=== PATIENT | male | born 1950 ===

== ENCOUNTER 2017-02-28 16:59 | Emergency (ER) | payer OTHER ==
[2017-02-28 17:18] VITALS: BP 177/74; PULSE 90; RESP 16; TEMP 99.2; O2SAT 99
--- NOTE | 2017-02-28 17:19 | ED PDOC ---
HPI: Abdomen Time Seen by Provider: 02/28/17 17:18 Chief Complaint (Nursing): Abdominal Pain Chief Complaint (Provider): abdominal pain History Per: Patient Additional Complaint(s): 66-year-old male with history of high blood pressure presents to emergency Department with right-sided back pain that radiates to right lower quadrant that started last night associated with urinary frequency. Patient denies fever or chills, no nausea or vomiting, no diarrhea or constipation. Patient denies history of renal colic. No meds taken for pain relief at home. Past Medical History Reviewed: Historical Data, Nursing Documentation, Vital Signs Vital Signs: Last Vital Signs Temp 99.2 F 02/28/17 17:15 Pulse 90 02/28/17 17:15 Resp 16 02/28/17 17:15 BP 177/74 H 02/28/17 17:15 Pulse Ox 99 02/28/17 19:13 - Medical History PMH: Back Problems, HTN - Surgical History Surgical History: Back Surgery - Family History Family History: States: No Known Family Hx - Living Arrangements Living Arrangements: With Family - Social History Current smoker - smoking cessation education provided: No Alcohol: None Drugs: Denies - Allergies Allergies/Adverse Reactions: Allergies Allergy/AdvReac Type Severity Reaction Status Date / Time No Known Allergies Allergy Verified 02/28/17 17:15 Review of Systems ROS Statement: Except As Marked, All Systems Reviewed And Found Negative Constitutional: Negative for: Fever, Chills Cardiovascular: Negative for: Chest Pain Respiratory: Negative for: Cough Gastrointestinal: Positive for: Abdominal Pain (RLQ). Negative for: Nausea, Vomiting, Diarrhea, Constipation Genitourinary Male: Positive for: Frequency. Negative for: Dysuria, Incontinence, Hematuria, Scrotal Pain, Penile Pain Musculoskeletal: Positive for: Back Pain (right) Physical Exam - Reviewed Nursing Documentation Reviewed: Yes Vital Signs Reviewed: Yes - Physical Exam Appears: Positive for: Well, Non-toxic, No Acute Distress Skin: Negative for: Rash Eye Exam: Positive for: Normal appearance Cardiovascular/Chest: Positive for: Regular Rate, Rhythm Respiratory: Positive for: Normal Breath Sounds Gastrointestinal/Abdominal: Positive for: Soft, Tenderness (RLQ). Negative for : Distended, Guarding, Rebound Back: Positive for: R CVA Tenderness. Negative for: L CVA Tenderness, Vertebral Tenderness Extremity: Negative for: Pedal Edema Neurologic/Psych: Positive for: Alert, Oriented - Laboratory Results Result Diagrams: 02/28/17 18:29 02/28/17 18:29 Urine dip results: Negative for: Leukocyte Esterase, Blood, Nitrate, Ketones, Glucose, Bilirubin, Protein - ECG O2 Sat by Pulse Oximetry: 99 Pulse Ox Interpretation: Normal Medical Decision Making Medical Decision Makin66 year old male with back pain, abd pain and urinary frequency Plan: Urine dip - negative CBC CMP IVF CT abd and pelvis with IV contrast Disposition - Clinical Impression Clinical Impression: Abdominal pain - Patient ED Disposition Is Patient to be Admitted: Transfer of Care - Disposition Disposition: Transfer of Care Disposition Time: 20:02 Condition: STABLE Forms: [employer] (Divehi) Patient Signed Over To: Fernando Hess Handoff Comments: pending CT results and final disposition Results - Lab Results Lab Results: 02/28/17 02/28/17 18:29 18:29 WBC 6.8 RBC 4.59 Hgb 15.6 Hct 45.6 MCV 99.3 H MCH 33.9 H MCHC 34.1 RDW 13.2 Plt Count 133 MPV 8.9 Neut % (Auto) 63.0 Lymph % (Auto) 27.9 [place] % (Auto) 7.1 Eos % (Auto) 1.8 Baso % (Auto) 0.2 Neut # 4.3 Lymph # 1.9 [place] # 0.5 Eos # 0.1 Baso # 0.0 Sodium 140 Potassium 3.5 L Chloride 102 Carbon Dioxide 28 Anion Gap 14 BUN 19 Creatinine 0.9 Est GFR ( Amer) > 60 Est GFR (Non-Af Amer) > 60 Random Glucose 96 Calcium 9.2 Total Bilirubin 0.9 AST 23 ALT 37 Alkaline Phosphatase 60 Total Protein 7.6 Albumin 4.2 Globulin 3.4 Albumin/Globulin Ratio 1.3
[2017-02-28] MEDS ORDERED: Sodium Chloride 0.9% 1,000 ML IV STA (18:11)
[2017-02-28 18:39] LABS: BASO % 0.2 % (0.0-2.0); EOS # 0.1 K/uL (0.0-0.7); EOS % 1.8 % (0.0-4.0); HEMATOCRIT 45.6 % (35.0-51.0); LYMPH # 1.9 K/uL (1.0-4.3); LYMPH % 27.9 % (20.0-40.0); MEAN CELL VOLUME 99.3 fl (80.0-94.0); MEAN CORPUSCULAR HEMOGLOBIN 33.9 pg (27.0-31.0); MEAN CORPUSCULAR HGB CONC 34.1 g/dL (33.0-37.0); MEAN PLATELET VOLUME 8.9 fl (7.2-11.7); MONO # 0.5 K/uL (0.0-0.8); MONO % 7.1 % (0.0-10.0); NEUT # 4.3 K/uL (1.8-7.0); NRBC % 0.1 % (0.0-0.0); RED CELL DISTRIBUTION WIDTH 13.2 % (11.5-14.5); WHITE BLOOD COUNT 6.8 K/uL (4.8-10.8)
[2017-02-28 18:49] LABS: ALB/GLOB RATIO 1.3 (1.0-2.1); ALKALINE PHOSPHATASE 60 U/L (38-126); ALT/SGPT 37 U/L (21-72); AST/SGOT 23 U/L (17-59); BILIRUBIN,TOTAL 0.9 mg/dl (0.2-1.3); BLOOD UREA NITROGEN 19 mg/dl (9-20); CALCIUM 9.2 mg/dL (8.4-10.2); CARBON DIOXIDE 28 mmol/L (22-30); CHLORIDE 102 mmol/L (98-107); GFR AFRICAN-AMERICAN > 60; GLUCOSE,RANDOM 96 mg/dL (75-110); POTASSIUM 3.5 MMOL/L (3.6-5.0); SODIUM 140 mmol/l (132-148); TOTAL PROTEIN 7.6 G/DL (6.3-8.2)
[2017-02-28] MEDS ORDERED: Iohexol 300 100 ML IJ ONE (19:16)
[2017-02-28] MEDS ORDERED: Sodium Chloride 0.9% 50 ML IV ONE (19:16)
--- NOTE | 2017-02-28 20:19 | CT ---
EXAM: CT Abdomen and Pelvis With Intravenous Contrast CLINICAL HISTORY: 66 years old, male; Pain; Abdominal pain; Prior surgery; Surgery date: 6+ months; Surgery type: Lumbar; Additional info: Rlq pain TECHNIQUE: Axial computed tomography images of the abdomen and pelvis with intravenous contrast. All CT scans at this facility use one or more dose reduction techniques, viz.: automated exposure control; ma/kV adjustment per patient size (including targeted exams where dose is matched to indication; i.e. head); or iterative reconstruction technique. Coronal and sagittal reformatted images were created and reviewed. CONTRAST: 95 mL of omnipaque 300 administered intravenously. COMPARISON: No relevant prior studies available. FINDINGS: Lower thorax: Hypoventilatory changes/atelectasis/scarring at the visualized lung bases. ABDOMEN: Liver: No acute abnormality as visualized. Gallbladder and bile ducts: No calcified stones. No ductal dilation. Ultrasound can provide more sensitive evaluation of the biliary system as warranted. Pancreas: No acute abnormality as visualized. Spleen: Prominent in size. Adrenals: No acute abnormality as visualized. Kidneys and ureters: Symmetric enhancement. No hydronephrosis. Stomach and bowel: Evaluation limited without enteric contrast. The stomach is collapsed, limiting its evaluation, but gastric wall appears thickened. No small bowel obstruction. Extensive diverticulosis. Appendix: Questionable prominence of the appendix, limited evaluation. PELVIS: Bladder: No acute abnormality as visualized. Reproductive: No acute abnormality as visualized. Limited evaluation. ABDOMEN and PELVIS: Intraperitoneal space: Increased markings in the mesentery. No free air. No significant fluid collection. Bones: No acute fracture. Degenerative changes. Postsurgical changes with hardware stabilizing L4-S1. Vasculature: Atherosclerosis. Lymph nodes: No abnormal adenopathy visualized. IMPRESSION: Evaluation of the bowel significantly limited without enteric contrast. Stomach is collapsed, limiting its evaluation, but gastric wall appears thickened. Questionable prominence of the appendix, limited evaluation. Extensive diverticulosis. Evidence of inflammation involving the sigmoid colon, question diverticulitis. Correlate clinically. Consider repeat evaluation with enteric contrast. If repeat imaging is performed, canine service instructor trainer image to ensure contrast has traversed the colon is recommended. Additional details/findings as above.
--- NOTE | 2017-02-28 21:56 | ED PDOC ---
- Laboratory Results Result Diagrams: 02/28/17 18:29 02/28/17 18:29 - ECG O2 Sat by Pulse Oximetry: 99 - Progress ED Course And Treament: 1999 Signed out to me pending CT results. 2017 CT abd/pelvis w/ IV contrast: Evaluation of the bowel significantly limited without enteric contrast. Stomach is collapsed, limiting its evaluation, but gastric wall appears thickened. Questionable prominence of the appendix, limited evaluation. Extensive diverticulosis. Evidence of inflammation involving the sigmoid colon, question diverticulitis. Correlate clinically. Consider repeat evaluation with enteric contrast. 2100 Case d/w Dr. Fields, surgery online retailer, and requests that medical or surgical instrument maker be contacted. [address] Obregon, medical or surgical instrument maker, who spoke with Dr. Fields and states pt. can be dc'd. Pt. informed of plan and instructed to return to ED immediately if pain worsens or persists. Disposition - Clinical Impression Clinical Impression: Abdominal pain - POA Present On Arrival: None - Disposition Referrals: [facility] [Outside] Disposition: Routine/Home Disposition Time: 21:56 Condition: STABLE Prescriptions: Naproxen [Naprosyn] 500 mg PO BID PRN #4 tab PRN Reason: Pain Instructions: Abdominal Pain (ED) Forms: [employer] (Uzbek) Print Language: SPANISH
--- NOTE | 2017-02-28 22:19 | CP.PCM.CON ---
History of Present Illness - History of Present Illness History of Present Illness: General Surgery- Dr. Fields 66M no relevant pmhx presents to [facility] ED for RLQ pain that started two days ago. Pain waxes and wanes and is described as gas pain. No associated nausea, vomiting, or diarrhea. Bowel movements have been regular and non-bloody. Nothing seems to make it worse. Denies: Fevers, chills, chest pain, shortness of breath, nausea, vomiting, diarrhea, numbness/tingling in extremities PMH: none PSH: Lumbar disc [place]: NKDA SocialHx: Denies ETOH, Tobacco, recreational drug use Review of Systems - Review of Systems All systems: reviewed and no additional remarkable complaints except - Constitutional Constitutional: As Per HPI Past Patient History - Past Social History Alcohol: None Drugs: Denies - CARDIAC Hx Hypertension: Yes - PSYCHIATRIC Hx Substance Use: No Meds Allergies/Adverse Reactions: Allergies Allergy/AdvReac Type Severity Reaction Status Date / Time No Known Allergies Allergy Verified 02/28/17 17:15 Physical Exam - Constitutional Appears: Non-toxic, No Acute Distress - Head Exam Head Exam: ATRAUMATIC - Eye Exam Eye Exam: EOMI. absent: Scleral icterus - ENT Exam ENT Exam: Mucous Membranes Moist - Respiratory Exam Respiratory Exam: NORMAL BREATHING PATTERN. absent: Accessory Muscle Use, Respiratory Distress - Cardiovascular Exam Cardiovascular Exam: +S1, +S2. absent: Bradycardia, Tachycardia - GI/Abdominal Exam GI & Abdominal Exam: Soft, Tenderness. absent: Distended, Firm, Guarding, Hernia, Organomegaly, Rebound, Rigid Additional comments: tenderness to deep palpation Negative rovsings, murphys; not tympanic, no rebound tenderness, negative psoas, negative obturator sign - Back Exam Back exam: absent: CVA tenderness (L), CVA tenderness (R) - Neurological Exam Neurological exam: Alert, Oriented x3 - Psychiatric Exam Psychiatric exam: Normal Affect - Skin Skin Exam: Intact, Normal Color, Warm Results - Vital Signs Recent Vital Signs: Last Vital Signs Temp 99.2 F 02/28/17 17:15 Pulse 90 02/28/17 17:15 Resp 16 02/28/17 17:15 BP 177/74 H 02/28/17 17:15 Pulse Ox 99 02/28/17 21:56 - Labs Result Diagrams: 02/28/17 18:29 02/28/17 18:29 Labs: Laboratory Results - last 24 hr 02/28/17 02/28/17 18:29 18:29 WBC 6.8 RBC 4.59 Hgb 15.6 Hct 45.6 MCV 99.3 H MCH 33.9 H MCHC 34.1 RDW 13.2 Plt Count 133 MPV 8.9 Neut % (Auto) 63.0 Lymph % (Auto) 27.9 [place] % (Auto) 7.1 Eos % (Auto) 1.8 Baso % (Auto) 0.2 Neut # 4.3 Lymph # 1.9 [place] # 0.5 Eos # 0.1 Baso # 0.0 Sodium 140 Potassium 3.5 L Chloride 102 Carbon Dioxide 28 Anion Gap 14 BUN 19 Creatinine 0.9 Est GFR ( Amer) > 60 Est GFR (Non-Af Amer) > 60 Random Glucose 96 Calcium 9.2 Total Bilirubin 0.9 AST 23 ALT 37 Alkaline Phosphatase 60 Total Protein 7.6 Albumin 4.2 Globulin 3.4 Albumin/Globulin Ratio 1.3 Assessment & Plan - Assessment and Plan (Free Text) Assessment: 66M RLQ abdominal pain Plan: - clinically does not support appendicitis; abdominal pain resolved w/ no pain medication. - pain control and anti-emetic PRN - no surgical intervention at this time - case discussed with Dr. Fields surgical attending Naman Obregon PGY1
== END 2017-02-28 23:12 | disposition home or self-care (01) ==
LOC: H.ER 16:59
DX: R10.31 Right lower quadrant pain (principal); I10 Essential (primary) hypertension; K57.30 Diverticulosis of large intestine without perforation or abscess without bleeding
CPT/HCPCS: 74177; 80053; 85025; 96361; 96374; 99282; J1885; J7040; Q9967